=== PATIENT | male | born 1945 | race Caucasian/White ===

== ENCOUNTER 2017-07-10 11:55 | Day surgery (SDC) | payer OTHER ==
[~2017-07-10] VITALS: Ht 180.3 cm; Wt 73.5 kg
[2017-07-10] MEDS ORDERED: CELE200C PO (12:50)
[2017-07-10] MEDS ORDERED: ACET650S21 PO (12:50)
[2017-07-10] MEDS ORDERED: DEXA4TAB PO (12:50)
[2017-07-10 12:51] VITALS: BP 133/81
[2017-07-10] MEDS ORDERED: SODIUM CHLORIDE 0.9% 1,000 ML IV SCH (12:51)
[2017-07-10] MEDS ORDERED: LEVO50TA PO (13:03)
[2017-07-10] MEDS ORDERED: FENTANYL PF 100 MCG/2ML ONE (13:28)
[2017-07-10] MEDS ORDERED: FLUMAZENIL 0.1 MG/1 ML, 5ML ONE (13:28)
[2017-07-10] MEDS ORDERED: MIDAZOLAM 1 MG/ML, 5ML ONE (13:28)
[2017-07-10] MEDS ORDERED: NALOXONE 1 MG/ML, 2ML ONE (13:28)
[2017-07-10] MEDS ORDERED: OMNIPAQUE 350 MG/ML, 100ML BOTTLE ONE (15:32)
== END 2017-07-10 16:00 ==
LOC: OUT 11:55
PROVIDERS: ATTEND Neurological Surgery
DX: D49.6 Neoplasm of unspecified behavior of brain (principal); Z85.820 Personal history of malignant melanoma of skin; Z98.890 Other specified postprocedural states
CPT/HCPCS: 20206; 70460; 77012; 88172; 88305; 88333; 99156; J2250; J3010; J7030; Q9967; 88341; 88342; 99157; G0461; J2310

== ENCOUNTER → 2017-07-12 | Outpatient (CLI) | payer OTHER ==
[~2017-07-12] MED LIST: ACET650S21 PO; CELE200C PO; DEXA4TAB PO; LEVO50TA PO
== END | disposition home or self-care (01) ==
LOC: PETCFH 07:13
PROVIDERS: ATTEND Internal Medicine Hematology & Oncology
DX: K76.89 Other specified diseases of liver (principal); G93.89 Other specified disorders of brain; C71.3 Malignant neoplasm of parietal lobe
CPT/HCPCS: 78815; A9552

== ENCOUNTER 2017-07-13 08:00 | Day surgery (SDC) | payer OTHER ==
[~2017-07-13] VITALS: Ht 177.8 cm; Wt 71.9 kg
[2017-07-13 08:34] VITALS: BP 125/80
[2017-07-13] MEDS ORDERED: LIDOCAINE-MPF 1%, 2ML ONE (08:58)
[2017-07-13] MEDS ORDERED: SODIUM CHLORIDE 0.9% 1,000 ML IV SCH (09:01)
[2017-07-13 09:09] LABS: INTERNATIONAL NORMALIZED RATIO 1.02 (0.93-1.1); PROTHROMBIN TIME 10.6 Seconds (9.6-11.5)
[2017-07-13] MEDS ORDERED: FENTANYL PF 100 MCG/2ML ONE (14:24)
[2017-07-13] MEDS ORDERED: NALOXONE 1 MG/ML, 2ML ONE (14:24)
[2017-07-13] MEDS ORDERED: MIDAZOLAM 1 MG/ML, 5ML ONE (14:24)
[2017-07-13] MEDS ORDERED: FLUMAZENIL 0.1 MG/1 ML, 5ML ONE (14:24)
[2017-07-17] MEDS ORDERED: testosterone TD (10:28)
[2017-07-17] MEDS ORDERED: OMEP-110 PO (10:28)
[2017-07-17] MEDS ORDERED: CETI10CA PO (10:28)
== END 2017-07-13 18:10 ==
LOC: OUT 08:00
PROVIDERS: ATTEND Radiology Diagnostic Radiology
DX: C34.92 Malignant neoplasm of unspecified part of left bronchus or lung (principal)
CPT/HCPCS: 32405; 36415; 71045; 77012; 85610; 88305; 88333; 99156; J2250; J3010; J7030; 88341; 88342; G0461; J2310

== ENCOUNTER 2017-07-19 05:30 | Inpatient (IN) | payer OTHER, MEDICARE ==
[2017-07-17 10:28] LABS: MICROSCOPIC NOT IND
[2017-07-17 10:29] LABS: INTERNATIONAL NORMALIZED RATIO 0.96 (0.93-1.1); MEAN CORPUSCULAR HEMOGLOBIN 28.3 pg (27.5-34.5); MEAN CORPUSCULAR HGB CONC 33.3 g/dL (33.2-36.2); MEAN CORPUSCULAR VOLUME 85.1 fL (81-97); MEAN PLATELET VOLUME 8.1 fL (7.4-10.4); PLATELET COUNT 252 x10^3/uL (130-400); RED BLOOD COUNT 5.98 x10^6/uL (4.38-5.82); RED CELL DISTRIBUTION WIDTH 13.7 % (9.4-14.8)
[2017-07-17 10:32] LABS: ALANINE AMINOTRANSFERASE 194 U/L (12-78); ALBUMIN 3.5 g/dL (3.4-5.0); ANION GAP 9 mmol/L (5-15); CALCIUM 8.7 mg/dL (8.5-10.1); CHLORIDE 102 mmol/L (98-107); CREATININE 1.15 mg/dL (0.7-1.3)
[2017-07-17 10:35] LABS: ALKALINE PHOSPHATASE 145 U/L (45-117); BILIRUBIN,TOTAL 0.5 mg/dL (0.2-1.0)
[2017-07-17 10:35] LABS: CULTURE INDICATED? NO
[2017-07-17 10:57] LABS: BASOPHILS # (AUTO) 0.01 x10^3/uL (0-0.1); BASOPHILS % (AUTO) 0 % (0-1); EOSINOPHILS % (AUTO) 0 % (1-7); LYMPHOCYTES % (AUTO) 2 % (22-44); MD MORPH REVIEW ONLY; MONOCYTES # (AUTO) 0.57 x10^3/uL (0.2-0.8); MONOCYTES % (AUTO) 3 % (2-9); NEUTROPHILS # (AUTO) 19.48 x10^3/uL (1.8-6.8); NEUTROPHILS % (AUTO) 95 % (42-75)
[2017-07-17 11:03] LABS: <PLATELET ESTIMATE> ADEQUATE; <RBC MORPHOLOGY> NORMAL; LARGE PLATELETS 1+
[~2017-07-19] VITALS: Ht 177.8 cm; Wt 74.6 kg
[~2017-07-19 05:30] MED LIST changes: +CETI10CA PO; +OMEP-110 PO; +testosterone TD
[2017-07-19] MEDS ORDERED: LACTATED RINGERS 1,000 ML IV SCH (05:49)
[2017-07-19 06:10] VITALS: BP 126/82
[2017-07-19] MEDS ORDERED: DEXAMETHASONE PO (06:15)
[2017-07-19] MEDS ORDERED: GADOBUTROL 7.5 MMOL/7.5 ML PFS ONE (06:35)
[2017-07-19] MEDS ORDERED: FENTANYL PF 250 MCG/5ML ONE (06:40)
[2017-07-19] MEDS ORDERED: PROPOFOL 150 ML ONE (06:42)
[2017-07-19] MEDS ORDERED: PROPOFOL 0 ML ONE (06:42)
[2017-07-19] MEDS ORDERED: REMIFENTANIL 2 MG ONE (06:42)
[2017-07-19] MEDS ORDERED: BUPIVACAINE/PF 0.5% ONE (06:48)
[2017-07-19] MEDS ORDERED: EPINEPHRINE 1 MG/ML, 1ML ONE (06:49)
[2017-07-19] MEDS ORDERED: THROMBIN 20,000 UNIT VIAL TP ONE ×2 (06:49→08:34)
[2017-07-19] MEDS ORDERED: BACITRACIN 50,000 UNIT ONE (06:49)
[2017-07-19] MEDS ORDERED: ROCURONIUM 10 MG/ML,10ML ONE (07:33)
[2017-07-19] MEDS ORDERED: NEOSTIGMINE 1 MG/ML, 10ML ONE (07:33)
[2017-07-19] MEDS ORDERED: GLYCOPYRROLATE 0.2MG/1ML, 5ML ONE (07:33)
[2017-07-19] MEDS ORDERED: CEFAZOLIN 1,000 MG ONE (07:33)
[2017-07-19] MEDS ORDERED: ONDANSETRON 2MG/ML, 2ML ONE (07:33)
[2017-07-19] MEDS ORDERED: ACETAMINOPHEN 325 MG TABLET PO PRN ×2 (11:00→12:30)
[2017-07-19] MEDS ORDERED: PROMETHAZINE 25 MG/ML, 1ML IV PRN (11:00)
[2017-07-19] MEDS ORDERED: OXYcodone 5 MG/5 ML ORAL.SOL UDC PO PRN (11:00)
[2017-07-19] MEDS ORDERED: ACETAMINOPHEN 650 MG/20.3 ML UDC ONE (11:09)
[2017-07-19] MEDS ORDERED: FENTANYL PF 100 MCG/2ML ONE (11:10)
[2017-07-19] MEDS ORDERED: OXYcodone 5 MG/5 ML ORAL.SOL UDC ONE (11:10)
[2017-07-19] MEDS: FENTANYL PF 100 MCG/2ML IV PRN ×2 (11:12→11:20)
[2017-07-19] MEDS ORDERED: DEXAMETHASONE 4 MG/ML, 1ML ONE (11:26)
[2017-07-19] MEDS ORDERED: PROPOFOL 10 MG/ML, 20ML ONE (11:41)
[2017-07-19] MEDS ORDERED: BISACODYL 10 MG SUPP PR PRN (12:30)
[2017-07-19] MEDS ORDERED: DEXAMETHASONE 4 MG/ML, 1ML IV SCH (12:30)
[2017-07-19] MEDS ORDERED: LABETALOL 5MG/ML, 20ML IV PRN ×2 (12:30)
[2017-07-19] MEDS ORDERED: DIPHENHYDRAMINE 50 MG/ML, 1ML IV PRN (12:30)
[2017-07-19] MEDS ORDERED: ACETAMINOPHEN 650 MG SUPP PR PRN (12:30)
[2017-07-19] MEDS ORDERED: MAGNESIUM HYDROXIDE 8%, 30ML UDC PO PRN (12:30)
[2017-07-19] MEDS ORDERED: LABETALOL 250 MG in DEXTROSE 5% 200 ML IV PRN (12:30)
[2017-07-19] MEDS ORDERED: morphine SULFATE 10 MG/ML, 1ML IV PRN ×2 (12:30→13:00)
[2017-07-19] MEDS ORDERED: ENALAPRILAT 1.25 MG/ML, 2ML IV SCH ×3 (12:30→13:00)
[2017-07-19] MEDS: ENALAPRILAT 1.25 MG/ML, 2ML IV SCH ×3 (13:00→21:00)
[2017-07-19] MEDS: NS + 20MEQ KCL 1,000 ML IV SCH ×2 (13:20→22:53)
[2017-07-19] MEDS: DEXAMETHASONE 4 MG TABLET PO SCH ×2 (15:00→17:39)
[2017-07-19] MEDS: DEXAMETHASONE 4 MG/ML, 1ML IV SCH ×2 (15:39→21:47)
[2017-07-19] MEDS: CEFAZOLIN PMX 1GM/50ML 50 ML IVPB SCH ×2 (15:44→22:53)
[2017-07-19] MEDS: OXYcodone/APAP 5/325MG TABLET PO PRN ×2 (15:50→21:47)
[2017-07-19 19:00] VITALS: BP 88/40
[2017-07-19 20:00] VITALS: BP 98/52
[2017-07-19 21:00] VITALS: BP 98/53
[2017-07-19] MEDS: OMEPRAZOLE 20 MG CAPSULE.DR PO SCH (21:47)
[2017-07-19] MEDS: LEVETIRACETAM 500 MG in SODIUM CHLORIDE 0.9% 100 ML IV SCH (21:58)
[2017-07-19 22:00] VITALS: BP 100/54
[2017-07-19 23:00] VITALS: BP 106/57
[2017-07-20] VITALS (13 sets, daily range): BP systolic 99–117; BP diastolic 52–75
[2017-07-20] MEDS: DEXAMETHASONE 4 MG TABLET PO SCH ×3 (00:30→12:24)
[2017-07-20] MEDS: ENALAPRILAT 1.25 MG/ML, 2ML IV SCH ×6 (01:00→21:00)
[2017-07-20] MEDS: HYDROcodone/APAP 5/325 TABLET PO PRN ×4 (03:27→17:54)
[2017-07-20] MEDS: DEXAMETHASONE 4 MG/ML, 1ML IV SCH ×4 (03:27→21:20)
[2017-07-20] MEDS: LEVOTHYROXINE 50 MCG TABLET PO SCH (05:45)
[2017-07-20 06:33] LABS: MEAN CORPUSCULAR HEMOGLOBIN 28.6 pg (27.5-34.5); MEAN CORPUSCULAR HGB CONC 33.7 g/dL (33.2-36.2); MEAN CORPUSCULAR VOLUME 84.9 fL (81-97); MEAN PLATELET VOLUME 7.9 fL (7.4-10.4); PLATELET COUNT 181 x10^3/uL (130-400); RED BLOOD COUNT 5.19 x10^6/uL (4.38-5.82); RED CELL DISTRIBUTION WIDTH 14.1 % (9.4-14.8)
[2017-07-20 06:40] LABS: ANION GAP 6 mmol/L (5-15); CALCIUM 7.5 mg/dL (8.5-10.1); CHLORIDE 108 mmol/L (98-107)
[2017-07-20 06:49] LABS: BASOPHILS # (AUTO) 0.15 x10^3/uL (0-0.1); BASOPHILS % (AUTO) 1 % (0-1); EOSINOPHILS % (AUTO) 0 % (1-7); LYMPHOCYTES # (AUTO) 0.34 x10^3/uL (1-3.4); LYMPHOCYTES % (AUTO) 1 % (22-44); MD SCAN; MONOCYTES % (AUTO) 0 % (2-9); NEUTROPHILS # (AUTO) 23.81 x10^3/uL (1.8-6.8); NEUTROPHILS % (AUTO) 98 % (42-75)
[2017-07-20 06:50] LABS: THYROID STIMULATING HORMONE 0.466 mIU/L (0.358-3.740)
[2017-07-20] MEDS: SENNA/DOCUSATE TABLET PO SCH (08:19)
[2017-07-20] MEDS: LEVETIRACETAM 500 MG in SODIUM CHLORIDE 0.9% 100 ML IV SCH ×2 (08:19→20:14)
[2017-07-20] MEDS: OMEPRAZOLE 20 MG CAPSULE.DR PO SCH ×2 (08:20→21:18)
[2017-07-20] MEDS: CETIRIZINE 10 MG TABLET PO SCH (08:20)
[2017-07-20] MEDS ORDERED: GADOBUTROL 7.5 MMOL/7.5 ML PFS ONE (11:30)
[2017-07-20] MEDS: NS + 20MEQ KCL 1,000 ML IV SCH ×2 (12:00→17:13)
[2017-07-21] MEDS: ENALAPRILAT 1.25 MG/ML, 2ML IV SCH ×3 (01:00→08:12)
[2017-07-21 01:24] VITALS: BP 133/79
[2017-07-21] MEDS: HYDROcodone/APAP 5/325 TABLET PO PRN (01:29)
[2017-07-21] MEDS: NS + 20MEQ KCL 1,000 ML IV SCH (03:17)
[2017-07-21] MEDS: DEXAMETHASONE 4 MG/ML, 1ML IV SCH ×2 (03:22→09:42)
[2017-07-21 05:23] VITALS: BP 135/79
[2017-07-21] MEDS: LEVOTHYROXINE 50 MCG TABLET PO SCH (05:32)
[2017-07-21 06:13] LABS: MEAN CORPUSCULAR HEMOGLOBIN 28.7 pg (27.5-34.5); MEAN CORPUSCULAR HGB CONC 33.8 g/dL (33.2-36.2); MEAN CORPUSCULAR VOLUME 85.1 fL (81-97); MEAN PLATELET VOLUME 8.1 fL (7.4-10.4); PLATELET COUNT 154 x10^3/uL (130-400); RED BLOOD COUNT 5.19 x10^6/uL (4.38-5.82); RED CELL DISTRIBUTION WIDTH 14.2 % (9.4-14.8)
[2017-07-21 06:54] LABS: MD YES
[2017-07-21 06:55] LABS: LYMPH#(MANUAL) 0.73 x10^3/uL (1-3.4); LYMPHS% (MANUAL) 4 % (22-44); MONOS#(MANUAL) 1.09 x10^3/uL (0.3-2.7); MONOS% (MANUAL) 6 % (2-9); MYELOCYTES# (MANUAL) 0.18 x10^3/uL (0-0); MYELOCYTES% (MANUAL) 1 % (0-0); SEGS% (MANUAL) 89 % (42-75)
[2017-07-21 06:56] LABS: <PLATELET ESTIMATE> ADEQUATE; <PLT MORPHOLOGY> NORMAL PLT MORPH; <RBC MORPHOLOGY> NORMAL
[2017-07-21] MEDS: LEVETIRACETAM 500 MG in SODIUM CHLORIDE 0.9% 100 ML IV SCH (08:12)
[2017-07-21] MEDS: SENNA/DOCUSATE TABLET PO SCH (08:12)
[2017-07-21] MEDS: OMEPRAZOLE 20 MG CAPSULE.DR PO SCH (08:12)
[2017-07-21] MEDS: OXYcodone/APAP 5/325MG TABLET PO PRN (08:22)
[2017-07-21] MEDS: CETIRIZINE 10 MG TABLET PO SCH (08:22)
[2017-07-21] MEDS ORDERED: OMEP20TA62 PO (09:59)
[2017-07-21] MEDS ORDERED: LEVE500T54 PO (09:59)
[2017-07-21] MEDS ORDERED: OXYC1TAB7 PO (10:00)
[2017-07-21] MEDS ORDERED: DEXA10PO2 PO (10:04)
[2017-07-21] MEDS ORDERED: DEXA2TAB PO (10:06)
== END 2017-07-21 10:45 | disposition home or self-care (01) | DRG 26 ==
LOC: ORIP 05:30 → EDSTATUS 07:30 → CCU 12:13 → 4NOR 07-20 11:50
PROVIDERS: ADMIT Neurological Surgery; ATTEND Neurological Surgery
PROC: 00B00ZZ Excision of Brain, Open Approach (ICD-10-PCS; principal; 2017-07-19 07:30)
DX: C79.31 Secondary malignant neoplasm of brain (principal); C34.90 Malignant neoplasm of unspecified part of unspecified bronchus or lung; E11.9 Type 2 diabetes mellitus without complications; E78.5 Hyperlipidemia, unspecified; I10 Essential (primary) hypertension
CPT/HCPCS: 36415; 70450; 70552; 70553; 71046; 80048; 80053; 81003; 84439; 84443; 85025; 85610; 85730; 86850; 86900; 86923; 87081; 88307; 88313; 88331; 93005; A9585; C1713; J0171; J0690; J1100; J1953; J2405; J2704; J2710; J3010; J3480; J3490; A4648; C1781; J7120

== ENCOUNTER → 2017-08-03 | Outpatient (CLI) | payer OTHER ==
[~2017-08-03] MED LIST changes: +DEXA10PO2 PO; +DEXA2TAB PO; +DEXAMETHASONE PO; +LEVE500T54 PO; +OMEP20TA62 PO; +OXYC1TAB7 PO
== END | disposition home or self-care (01) ==
LOC: ROC 10:09
PROVIDERS: ATTEND Radiology Radiation Oncology
DX: C79.31 Secondary malignant neoplasm of brain (principal); C80.1 Malignant (primary) neoplasm, unspecified; C79.2 Secondary malignant neoplasm of skin
CPT/HCPCS: 99214; G0463

== ENCOUNTER → 2017-08-08 | Outpatient (CLI) | payer OTHER ==
[~2017-08-08] MED LIST changes: +GADOBUTROL 7.5 MMOL/7.5 ML PFS ONE
== END ==
LOC: CFH 12:29
PROVIDERS: ATTEND Radiology Radiation Oncology
DX: C79.31 Secondary malignant neoplasm of brain (principal); C43.9 Malignant melanoma of skin, unspecified
CPT/HCPCS: 70553; A9585

== ENCOUNTER → 2017-08-13 | Outpatient (CLI) | payer OTHER ==
[~2017-08-13] MED LIST changes: -GADOBUTROL 7.5 MMOL/7.5 ML PFS ONE
== END | disposition home or self-care (01) ==
LOC: RAD 17:15
PROVIDERS: ATTEND Internal Medicine Hematology & Oncology
DX: R91.8 Other nonspecific abnormal finding of lung field (principal); Z92.3 Personal history of irradiation; C43.9 Malignant melanoma of skin, unspecified
CPT/HCPCS: 71046

== ENCOUNTER → 2017-08-15 | Outpatient (CLI) | payer OTHER | LOC: RAD 15:37 | PROVIDERS: ATTEND Internal Medicine Hematology & Oncology | DX: C43.9 Malignant melanoma of skin, unspecified (principal); J84.10 Pulmonary fibrosis, unspecified; R91.8 Other nonspecific abnormal finding of lung field; R50.9 Fever, unspecified | CPT/HCPCS: 71046 ==

== ENCOUNTER → 2017-08-24 | Outpatient (CLI) | payer OTHER | END | disposition home or self-care (01) | LOC: CFH 10:04 | PROVIDERS: ATTEND Radiology Radiation Oncology | DX: C79.51 Secondary malignant neoplasm of bone (principal); C80.1 Malignant (primary) neoplasm, unspecified; G89.3 Neoplasm related pain (acute) (chronic) ==

== ENCOUNTER → 2017-10-17 | Outpatient (CLI) | payer OTHER ==
[~2017-10-17] MED LIST changes: +CHOL10003 PO; +CHOL400T10 PO; +DEXA4TAB66 PO; +L.AC1CAP6 PO; +LUTE6CAP3 PO; +MAG355OR14 PO; +ONDA4TAB10 PO; +PRED20TA PO; +RANI75TA12 PO; +SUCR1ORA5 PO
== END ==
LOC: ROC 10:23
PROVIDERS: ATTEND Radiology Radiation Oncology
DX: Z02.9 Encounter for administrative examinations, unspecified (principal)

== ENCOUNTER → 2017-12-10 | Outpatient (CLI) | payer OTHER ==
[~2017-12-10] MED LIST changes: +GADOBUTROL 7.5 MMOL/7.5 ML PFS ONE
== END | disposition home or self-care (01) ==
LOC: CFH 09:12
PROVIDERS: ATTEND Radiology Radiation Oncology
DX: C79.31 Secondary malignant neoplasm of brain (principal); C43.9 Malignant melanoma of skin, unspecified; G93.89 Other specified disorders of brain; L72.3 Sebaceous cyst; K21.9 Gastro-esophageal reflux disease without esophagitis
CPT/HCPCS: 70553; A9585

== ENCOUNTER → 2017-12-13 | Outpatient (CLI) | payer OTHER ==
[~2017-12-13] MED LIST changes: -GADOBUTROL 7.5 MMOL/7.5 ML PFS ONE
== END | disposition home or self-care (01) ==
LOC: ROC 10:18
PROVIDERS: ATTEND Radiology Radiation Oncology
DX: C79.31 Secondary malignant neoplasm of brain (principal); C43.9 Malignant melanoma of skin, unspecified
CPT/HCPCS: 99213; G0463

== ENCOUNTER → 2018-01-09 | Outpatient (CLI) | payer MEDICARE | END | disposition home or self-care (01) | LOC: PETCFH 07:44 | PROVIDERS: ATTEND Internal Medicine Hematology & Oncology | DX: K76.9 Liver disease, unspecified (principal); C43.39 Malignant melanoma of other parts of face | CPT/HCPCS: 78816; A9552 ==

== ENCOUNTER → 2018-03-04 | Outpatient (CLI) | payer MEDICARE ==
[~2018-03-04] MED LIST changes: +GADOBUTROL 7.5 MMOL/7.5 ML PFS ONE
== END | disposition home or self-care (01) ==
LOC: CFH 07:30
PROVIDERS: ATTEND Radiology Radiation Oncology
DX: C79.51 Secondary malignant neoplasm of bone (principal)
CPT/HCPCS: 70553; A9585

== ENCOUNTER → 2018-03-06 | Outpatient (CLI) | payer MEDICARE ==
[~2018-03-06] MED LIST changes: -GADOBUTROL 7.5 MMOL/7.5 ML PFS ONE
== END | disposition home or self-care (01) ==
LOC: ROC 13:01
PROVIDERS: ATTEND Radiology Radiation Oncology
DX: C79.51 Secondary malignant neoplasm of bone (principal); C43.9 Malignant melanoma of skin, unspecified
CPT/HCPCS: G0463

== ENCOUNTER → 2018-03-20 | Outpatient (CLI) | payer MEDICARE ==
[~2018-03-20] MED LIST changes: +GADOBUTROL 7.5 MMOL/7.5 ML PFS ONE
== END | disposition home or self-care (01) ==
LOC: RAD 07:51
PROVIDERS: ATTEND Orthopaedic Surgery
DX: M21.921 Unspecified acquired deformity of right upper arm (principal)
CPT/HCPCS: 73223; A9585

== ENCOUNTER → 2018-04-04 | Outpatient (CLI) | payer MEDICARE ==
[~2018-04-04] MED LIST changes: -GADOBUTROL 7.5 MMOL/7.5 ML PFS ONE
== END | disposition home or self-care (01) ==
LOC: PETCFH 07:59
PROVIDERS: ATTEND Internal Medicine Hematology & Oncology
DX: C79.51 Secondary malignant neoplasm of bone (principal); C43.30 Malignant melanoma of unspecified part of face; R91.8 Other nonspecific abnormal finding of lung field
CPT/HCPCS: 78816; A9552

== ENCOUNTER 2018-05-16 08:24 | Outpatient (CLI) | payer MEDICARE | END 2018-05-16 23:59 | disposition home or self-care (01) | LOC: ROC 08:24 | PROVIDERS: ATTEND Radiology Radiation Oncology | DX: Z08 Encounter for follow-up examination after completed treatment for malignant neoplasm (principal); C79.31 Secondary malignant neoplasm of brain | CPT/HCPCS: G0463 ==

== ENCOUNTER 2018-05-16 10:33 | Outpatient (CLI) | payer MEDICARE ==
[2018-05-16] MEDS ORDERED: GADOBUTROL 10 MMOL/10 ML PFS ONE (13:17)
== END 2018-05-16 23:59 | disposition home or self-care (01) ==
LOC: CFH 10:33
PROVIDERS: ATTEND Radiology Radiation Oncology
DX: C79.31 Secondary malignant neoplasm of brain (principal)
CPT/HCPCS: 70553; A9585

== ENCOUNTER → 2018-05-21 | Outpatient (CLI) | payer MEDICARE | END | disposition home or self-care (01) | LOC: PETCFH 12:48 | PROVIDERS: ATTEND Internal Medicine Hematology & Oncology | DX: C43.9 Malignant melanoma of skin, unspecified (principal); R91.1 Solitary pulmonary nodule; K57.30 Diverticulosis of large intestine without perforation or abscess without bleeding; N28.1 Cyst of kidney, acquired | CPT/HCPCS: 78816; A9552 ==

== ENCOUNTER → 2018-06-20 | Outpatient (CLI) | payer MEDICARE ==
[~2018-06-20] MED LIST changes: +GADOBUTROL 10 MMOL/10 ML PFS ONE
== END | disposition home or self-care (01) ==
LOC: CFH 08:24
PROVIDERS: ATTEND Radiology Radiation Oncology
DX: C79.31 Secondary malignant neoplasm of brain (principal); C79.51 Secondary malignant neoplasm of bone; G93.89 Other specified disorders of brain
CPT/HCPCS: 70553; 73700; A9585

== ENCOUNTER → 2018-06-20 | Outpatient (CLI) | payer MEDICARE ==
[~2018-06-20] MED LIST changes: -GADOBUTROL 10 MMOL/10 ML PFS ONE
== END | disposition home or self-care (01) ==
LOC: ROC 07:29
PROVIDERS: ATTEND Radiology Radiation Oncology
DX: Z08 Encounter for follow-up examination after completed treatment for malignant neoplasm (principal); C79.51 Secondary malignant neoplasm of bone
CPT/HCPCS: G0463

== ENCOUNTER 2018-08-29 10:12 | Outpatient (CLI) | payer MEDICARE | END 2018-08-29 23:59 | disposition home or self-care (01) | LOC: ROC 10:12 | PROVIDERS: ATTEND Radiology Radiation Oncology | DX: Z02.9 Encounter for administrative examinations, unspecified (principal) ==

== ENCOUNTER → 2018-10-07 | Outpatient (CLI) | payer MEDICARE | END | disposition home or self-care (01) | LOC: CFH 13:50 | PROVIDERS: ATTEND Internal Medicine Endocrinology, Diabetes & Metabolism | DX: M85.88 Other specified disorders of bone density and structure, other site (principal) | CPT/HCPCS: 77080 ==

== ENCOUNTER 2018-12-04 07:47 | Outpatient (CLI) | payer MEDICARE ==
[~2018-12-04 07:47] MED LIST changes: +RANI-244 PO; -RANI75TA12 PO
[2018-12-04] MEDS ORDERED: GADOBUTROL 7.5 MMOL/7.5 ML VIAL ONE (08:00)
== END 2018-12-04 23:59 | disposition home or self-care (01) ==
LOC: CFH 07:47
PROVIDERS: ATTEND Radiology Radiation Oncology
DX: C79.51 Secondary malignant neoplasm of bone (principal); C79.31 Secondary malignant neoplasm of brain; R91.1 Solitary pulmonary nodule; K57.00 Diverticulitis of small intestine with perforation and abscess without bleeding; Z98.890 Other specified postprocedural states
CPT/HCPCS: 70553; 78816; A9552; A9585; G0463

== ENCOUNTER 2018-12-04 08:10 | Outpatient (CLI) | payer MEDICARE | END 2018-12-04 23:59 | disposition home or self-care (01) | LOC: ROC 08:10 | PROVIDERS: ATTEND Radiology Radiation Oncology | DX: C79.31 Secondary malignant neoplasm of brain (principal) | CPT/HCPCS: G0463 ==

== ENCOUNTER → 2019-04-23 | Outpatient (CLI) | payer MEDICARE ==
[~2019-04-23] MED LIST changes: +GADOTERATE 7.5 MMOL/15 ML SYR ONE
== END | disposition home or self-care (01) ==
LOC: CFH 08:38
PROVIDERS: ATTEND Radiology Radiation Oncology
CPT/HCPCS: 70553 ×2; A9575

== ENCOUNTER 2019-06-18 08:47 | Outpatient (CLI) | payer MEDICARE ==
[~2019-06-18 08:47] MED LIST changes: -GADOTERATE 7.5 MMOL/15 ML SYR ONE
== END 2019-06-18 23:59 | disposition home or self-care (01) ==
LOC: PETCFH 08:47
PROVIDERS: ATTEND Internal Medicine Hematology & Oncology
DX: C43.9 Malignant melanoma of skin, unspecified (principal)
CPT/HCPCS: 78816; A9552

== ENCOUNTER 2019-09-10 07:37 | Outpatient (CLI) | payer MEDICARE ==
[2019-09-10] MEDS ORDERED: GADOTERATE 7.5 MMOL/15 ML SYR ONE (13:10)
== END 2019-09-10 23:59 | disposition home or self-care (01) ==
LOC: PETCFH 07:37
PROVIDERS: ATTEND Radiology Radiation Oncology
DX: C43.9 Malignant melanoma of skin, unspecified (principal); C79.51 Secondary malignant neoplasm of bone; G93.89 Other specified disorders of brain
CPT/HCPCS: 70553; A9575

== ENCOUNTER 2019-09-11 10:26 | Outpatient (CLI) | payer MEDICARE | END 2019-09-11 23:59 | disposition home or self-care (01) | LOC: ROC 10:26 | PROVIDERS: ATTEND Radiology Radiation Oncology | DX: Z08 Encounter for follow-up examination after completed treatment for malignant neoplasm (principal); Z85.841 Personal history of malignant neoplasm of brain; Z85.830 Personal history of malignant neoplasm of bone | CPT/HCPCS: 99213; G0463 ==

== ENCOUNTER → 2019-12-17 | Outpatient (CLI) | payer MEDICARE ==
[~2019-12-17] MED LIST changes: +GADOTERATE 7.5 MMOL/15 ML SYR ONE
== END | disposition home or self-care (01) ==
LOC: CFH 09:10
PROVIDERS: ATTEND Internal Medicine Hematology & Oncology
DX: C43.9 Malignant melanoma of skin, unspecified (principal); C79.31 Secondary malignant neoplasm of brain; C79.51 Secondary malignant neoplasm of bone
CPT/HCPCS: 70553; 78816; A9552; A9575

== ENCOUNTER → 2020-06-17 | Outpatient (CLI) | payer MEDICARE ==
[~2020-06-17] MED LIST changes: -GADOTERATE 7.5 MMOL/15 ML SYR ONE
== END | disposition home or self-care (01) ==
LOC: PETCFH 12:57
PROVIDERS: ATTEND Internal Medicine Hematology & Oncology
DX: C43.9 Malignant melanoma of skin, unspecified (principal); J84.10 Pulmonary fibrosis, unspecified
CPT/HCPCS: 78816; A9552

== ENCOUNTER 2020-11-09 10:40 | Outpatient (CLI) | payer MEDICARE ==
[2020-11-09] MEDS ORDERED: GADOTERATE 7.5 MMOL/15ML SYR ONE (11:34)
== END 2020-11-09 23:59 | disposition home or self-care (01) ==
LOC: RAD 10:40 → PETCFH 23:59
PROVIDERS: ATTEND Internal Medicine Hematology & Oncology
DX: C43.9 Malignant melanoma of skin, unspecified (principal); N28.1 Cyst of kidney, acquired; J34.89 Other specified disorders of nose and nasal sinuses; R93.0 Abnormal findings on diagnostic imaging of skull and head, not elsewhere classified
CPT/HCPCS: 70553; 78816; A9552; A9575